=== PATIENT | female | born 1995 | race African-American/Black ===

== ENCOUNTER 2016-12-14 21:08 | Emergency (ER) | payer OTHER ==
[2016-12-14 23:42] LABS: HEMOGLOBIN 13.4 gm/dl (12.3-15.3); RED BLOOD COUNT 4.45 M/UL (4.00-5.10); WHITE BLOOD COUNT 10.6 K/UL (4.5-11.0)
[2016-12-14 23:53] LABS: BUN/CREATININE RATIO 10 (0-10)
== END 2016-12-15 04:50 | disposition home or self-care (01) ==
LOC: ER1 21:08
PROVIDERS: Family Medicine
DX: O99.89 Other specified diseases and conditions complicating pregnancy, childbirth and the puerperium (principal); R10.84 Generalized abdominal pain; M54.9 Dorsalgia, unspecified; O99.331 Smoking (tobacco) complicating pregnancy, first trimester; F17.200 Nicotine dependence, unspecified, uncomplicated; Z3A.11 11 weeks gestation of pregnancy
CPT/HCPCS: 36415; 76815; 80053; 81001; 84702; 85025; 86900; 86901; 99284

== ENCOUNTER 2020-12-12 17:22 | Emergency (ER) | payer OTHER ==
[~2020-12-12 17:22] MED LIST: COLACE 100MG C100 MG PO; IBUPROFEN600 MG PO; LORTAB 5-325 M1 EACH PO; NORCO 5-325 TA1 EACH PO; PRENATAL VITAM1 EAC3 PO
== END 2020-12-12 17:50 | disposition left against medical advice (07) ==
LOC: ER1 17:22
DX: Z53.21 Procedure and treatment not carried out due to patient leaving prior to being seen by health care provider (principal)

== ENCOUNTER 2020-12-12 19:10 | Emergency (ER) | payer OTHER ==
[2020-12-12 21:00] LABS: HEMOGLOBIN 14.4 gm/dl (12.3-15.3); RED BLOOD COUNT 4.64 M/UL (4.00-5.10); WHITE BLOOD COUNT 9.2 K/UL (4.5-11.0)
[2020-12-12 21:26] LABS: BUN/CREATININE RATIO 9 (0-10)
== END 2020-12-12 21:47 | disposition home or self-care (01) ==
LOC: ER1 19:10
PROVIDERS: Physician Assistant; Preventive Medicine Occupational Medicine
DX: F32.9 Major depressive disorder, single episode, unspecified (principal); R89.8 Other abnormal findings in specimens from other organs, systems and tissues; Z20.822 Contact with and (suspected) exposure to COVID-19
CPT/HCPCS: 0240U; 36600; 70450; 71045; 80053; 80307; 81001; 82140; 82803; 83735; 84439; 84443; 84703; 85025; 85652; 86140; 87086; 99285; G0480; J7030